=== PATIENT | female | born 2000 | race Two or more races ===

== ENCOUNTER 2025-01-13 18:24 | Emergency (ER) | payer MEDICAID, OTHER ==
[~2025-01-13] VITALS: Ht 154.9 cm; Wt 77.2 kg
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
[2025-01-13] MEDS: IBUPROFEN 600 MG TAB PO ONE (21:09)
[2025-01-13 21:10] VITALS: BP 124/78; PULSE 101; RESP 17; TEMP 99; O2SAT 97
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
== END 2025-01-13 22:33 | disposition home or self-care (01) ==
LOC: ER 18:24
DX: S39.012A Strain of muscle, fascia and tendon of lower back, initial encounter (principal); V89.2XXA Person injured in unspecified motor-vehicle accident, traffic, initial encounter; Y93.89 Activity, other specified; Y92.410 Unspecified street and highway as the place of occurrence of the external cause; Y99.8 Other external cause status
CPT/HCPCS: 72100